=== PATIENT | female | born 1995 | race Two or more races ===

== ENCOUNTER 2016-08-15 20:39 | Emergency (ER) | payer BC ==
[~2016-08-15] VITALS: Ht 158.8 cm; Wt 99.3 kg
[~2016-08-15 20:39] MED LIST: GEMF600T PO; HYDR-3138 PO; OMEP-110 PO; PANT40TA3 PO; PREN-1 PO; prenatal vits
[2016-08-15] MEDS ORDERED: ONDANSETRON 2MG/ML, 2ML IVPush ONE (21:00)
[2016-08-15] MEDS ORDERED: SODIUM CHLORIDE 0.9% 1,000ML IVBOLUS ONE (21:00)
[2016-08-15] MEDS ORDERED: MORPHINE SULFATE 4 MG/ML, 1ML ONE ×2 (21:33→23:47)
[2016-08-15 21:34] LABS: BLOOD UREA NITROGEN 14 mg/dL (7-18)
[2016-08-15] MEDS ORDERED: ONDANSETRON 2MG/ML, 2ML ONE (21:34)
[2016-08-15 21:35] LABS: ASPARTATE AMINO TRANSFERASE 18 U/L (15-37)
[2016-08-15] MEDS: MORPHINE SULFATE 4 MG/ML, 1ML IVPush PRN (21:43)
[2016-08-16] MEDS ORDERED: METF10002 PO (00:08)
[2016-08-16] MEDS ORDERED: DAPA5TAB PO (00:09)
[2016-08-16] MEDS ORDERED: victoza SQ (00:10)
[2016-08-16] MEDS ORDERED: ATOR80TA PO (00:11)
[2016-08-16] MEDS ORDERED: trajenta (00:12)
[2016-08-16] MEDS ORDERED: CEFTRIAXONE 250 MG IM ONE (00:30)
[2016-08-16] MEDS ORDERED: AZITHROMYCIN 500 MG TABLET PO ONE (00:30)
[2016-08-16] MEDS: MORPHINE SULFATE 4 MG/ML, 1ML IVPush PRN (01:15)
[2016-08-16] MEDS ORDERED: AZITHROMYCIN 250 MG TABLET ONE (01:51)
[2016-08-16] MEDS ORDERED: LIDOCAINE 1%, 20ML ONE (01:52)
[2016-08-16] MEDS ORDERED: CEFTRIAXONE 250 MG ONE (01:52)
[2016-08-16 02:05] VITALS: BP 121/78
== END 2016-08-16 02:11 | disposition home or self-care (01) ==
LOC: ED 21:32
DX: A56.09 Other chlamydial infection of lower genitourinary tract (principal); E78.5 Hyperlipidemia, unspecified; E66.9 Obesity, unspecified; Z68.39 Body mass index [BMI] 39.0-39.9, adult
CPT/HCPCS: 36415; 76830; 80053; 81003; 84703; 85025; 87210; 87491; 87591; 87808; 96361; 96372; 96374; 96375; 96376; 99285; J0696; J2405; J7030

== ENCOUNTER 2017-12-12 00:02 | Emergency (ER) | payer BC, OTHER ==
[~2017-12-12] VITALS: Ht 157.5 cm; Wt 94.8 kg
[~2017-12-12 00:02] MED LIST changes: +ATOR80TA PO; +DAPA5TAB PO; -HYDR-3138 PO; +HYDR-3237 PO; +METF10002 PO; +trajenta; +victoza SQ
[2017-12-12 00:32] LABS: BASOPHILS # (AUTO) 0.05 x10^3/uL (0-0.1); BASOPHILS % (AUTO) 0 % (0-1); EOSINOPHILS # (AUTO) 0.07 x10^3/uL (0-0.4); EOSINOPHILS % (AUTO) 1 % (1-7); LYMPHOCYTES # (AUTO) 2.44 x10^3/uL (1-3.4); LYMPHOCYTES % (AUTO) 22 % (22-44); MD NO; MEAN CORPUSCULAR HGB CONC 33.2 g/dL (32.4-35.8); MEAN CORPUSCULAR VOLUME 84.2 fL (80-100); MEAN PLATELET VOLUME 7.6 fL (7.4-10.4); MONOCYTES # (AUTO) 0.54 x10^3/uL (0.2-0.8); MONOCYTES % (AUTO) 5 % (2-9); NEUTROPHILS % (AUTO) 73 % (42-75); PLATELET COUNT 263 x10^3/uL (130-400); RED BLOOD COUNT 4.49 x10^6/uL (3.82-5.3); RED CELL DISTRIBUTION WIDTH 13.4 % (9.6-15.2)
[2017-12-12 00:41] LABS: MICROSCOPIC INDICATED
[2017-12-12 00:42] LABS: ALANINE AMINOTRANSFERASE 19 U/L (12-78); ALBUMIN 3.6 g/dL (3.4-5.0); ANION GAP 10 mmol/L (5-15); CALCIUM 9.9 mg/dL (8.5-10.1); CHLORIDE 106 mmol/L (98-107); CREATININE 0.56 mg/dL (0.55-1.02)
[2017-12-12 00:48] LABS: CULTURE INDICATED? YES
[2017-12-12 00:59] LABS: ALKALINE PHOSPHATASE 84 U/L (45-117); BILIRUBIN,TOTAL 0.6 mg/dL (0.2-1.0); TOTAL PROTEIN 8.2 g/dL (6.4-8.2)
[2017-12-12 02:21] VITALS: BP 120/69
== END 2017-12-12 02:23 | disposition home or self-care (01) ==
LOC: ED 00:26
DX: O20.0 Threatened abortion (principal); R82.99 Other abnormal findings in urine; O24.419 Gestational diabetes mellitus in pregnancy, unspecified control; E78.5 Hyperlipidemia, unspecified; Z79.4 Long term (current) use of insulin; Z3A.08 8 weeks gestation of pregnancy
CPT/HCPCS: 36415; 76801; 80053; 81001; 84702; 85025; 86901; 87086; 99285

== ENCOUNTER 2017-12-13 18:30 | Emergency (ER) | payer SELFPAY ==
[~2017-12-13] VITALS: Ht 157.5 cm; Wt 95.2 kg
[2017-12-13 18:41] VITALS: BP 136/90
[2017-12-13 19:46] LABS: MICROSCOPIC INDICATED
[2017-12-13 20:08] LABS: CULTURE INDICATED? YES
== END 2017-12-13 21:53 | disposition home or self-care (01) ==
LOC: ED 19:19
DX: O36.4XX0 Maternal care for intrauterine death, not applicable or unspecified (principal); E78.5 Hyperlipidemia, unspecified; E11.9 Type 2 diabetes mellitus without complications; Z3A.01 Less than 8 weeks gestation of pregnancy
CPT/HCPCS: 36415; 76801; 81001; 84702; 87086; 99285